=== PATIENT | male | born 1975 | race Caucasian/White ===

== ENCOUNTER 2017-02-14 03:16 | Emergency (ER) | payer OTHER ==
[2017-02-14 03:21] VITALS: BP 160/115
[2017-02-14] MEDS ORDERED: oxyCODONE/Acetamin 5/325 MG* TAB PO ONE (03:38)
[2017-02-14] MEDS ORDERED: Ketorolac INJ* 60 MG/2 ML VIAL IM ONE (03:38)
--- NOTE | 2017-02-14 03:43 | ED ---
Katiana Wagner Michael, scribed for Jose Luis Kellogg MD on 02/14/17 at 0343 . Complex/Multi-Sys Presentation - HPI Summary HPI Summary: 42 y/o male comes to the ED presenting with upper right dental pain for the last week. The pt reports that he has 2 fx teeth, and he saw a dentist who referred him to an oral surgeon. This appointment is next week. The pain is not alleviated with 800mg Ibuprofen. The pt denies all other symptoms. - History Of Current Complaint Chief Complaint: EDDentalPain Time Seen by Provider: 02/14/17 03:35 Hx Obtained From: Patient, Medical Records Onset/Duration: Sudden Onset, Lasting Weeks, Still Present Timing: Constant Severity Currently: Moderate Severity Initially: Moderate Alleviating Factor(s): nothing Associated Signs And Symptoms: Positive: Other - dental pain - Allergies/Home Medications Allergies/Adverse Reactions: Allergies Allergy/AdvReac Type Severity Reaction Status Date / Time Codeine Allergy Rash Verified 07/30/15 12:46 Penicillins Allergy Rash Verified 07/30/15 12:46 Albuterol AdvReac Unknown Verified 07/30/15 12:46 Reaction Details PMH/Surg Hx/FS Hx/Imm Hx Endocrine/Hematology History: Denies: Hx Diabetes, Hx Thyroid Disease Cardiovascular History: Denies: Hx Hypertension Respiratory History: Denies: Hx Asthma, Hx Chronic Obstructive Pulmonary Disease (COPD) GI History: Denies: Hx Ulcer - Surgical History Surgery Procedure, Year, and Place: FUSION 2001 L-3 TRAUMA Infectious Disease History: No Infectious Disease History: Reports: Hx Hepatitis - C Denies: Hx Clostridium Difficile, Hx Human Immunodeficiency Virus (HIV), Hx of Known/Suspected MRSA, Hx Shingles, Hx Tuberculosis, Hx Known/Suspected VRE, Hx Known/Suspected VRSA, History Other Infectious Disease, Traveled Outside the [place] in Last 30 Days - Family History Known Family History: Negative: Blood Disorder - Social History Occupation: Employed Full-time Lives: Alone Alcohol Use: Occasionally Substance Use Type: Reports: None Smoking Status (MU): Former Smoker Type: Cigars Amount Used/How Often: once a week Have You Smoked in the Last Year: Yes Review of Systems Negative: Fever Positive: Dental Pain All Other Systems Reviewed And Are Negative: Yes Physical Exam Triage Information Reviewed: Yes Vital Signs On Initial Exam: Initial Vitals Temp Pulse Resp BP Pulse Ox 96.1 F 75 19 160/115 99 02/14/17 03:19 02/14/17 03:19 02/14/17 03:19 02/14/17 03:19 02/14/17 03:19 Vital Signs Reviewed: Yes Appearance: Positive: Well-Appearing, No Pain Distress Skin: Positive: Warm Head/Face: Positive: Normal Head/Face Inspection ENT: Positive: Hearing grossly normal Dental: Positive: Gross Decay/Caries @ Respiratory/Lung Sounds: Positive: Breath Sounds Present Neurological: Positive: Alert, Oriented to Person Place, Time Psychiatric: Positive: Affect/Mood Appropriate Diagnostics - Vital Signs Vital Signs Temp Pulse Resp BP Pulse Ox 02/14/17 03:22 96.1 F 77 16 160/115 98 02/14/17 03:19 96.1 F 75 19 160/115 99 - Laboratory Lab Statement: Any lab studies that have been ordered have been reviewed, and results considered in the medical decision making process. Complex Multi-Symp Course/Dx - Diagnoses Provider Diagnoses: Dentalgia Discharge - Discharge Plan Condition: Stable Disposition: HOME Prescriptions: Ibuprofen TAB* [Motrin TAB* 800 MG] 800 mg PO Q8H #30 tab Patient Education Materials: Toothache (ED) Referrals: Reese Oliver MD [Primary Care Provider] - Additional Instructions: Please go to your scheduled appointment with the oral surgeon. If needed follow up with Dr. Oliver when needed. The documentation as recorded by the Katiana baker Michael accurately reflects the service I personally performed and the decisions made by , Jose Luis Kellogg MD.
== END 2017-02-14 04:30 | disposition home or self-care (01) ==
LOC: ED 03:16
DX: K08.89 Other specified disorders of teeth and supporting structures (principal); Z87.891 Personal history of nicotine dependence; Z88.5 Allergy status to narcotic agent; Z88.0 Allergy status to penicillin
CPT/HCPCS: 99281; A9270-GY; J1885

== ENCOUNTER 2017-07-06 18:35 | Emergency (ER) | payer OTHER ==
[2017-07-06] MEDS ORDERED: Ketorolac INJ* 30 MG/ML 1 ML VIAL IV PUSH ONE (19:19)
[2017-07-06 19:28] LABS: Hematocrit 42 % (42-52); Hemoglobin 14.6 g/dl (14.0-18.0); Mean Corpuscular HGB Conc 35 g/dl (31-36); Mean Corpuscular Hemoglobin 30 pg (27-31); Mean Corpuscular Volume 85 fL (80-94); Mean Platelet Volume 8 um3 (7.4-10.4); Red Cell Distribution Width 14 % (10.5-15); White Blood Count 9.1 10^3/ul (3.5-10.8)
[2017-07-06 19:41] LABS: Albumin 4.3 g/dL (3.2-5.2); BUN/Creatinine Ratio 19.8 (8-20); Calcium 9.4 mg/dL (8.6-10.3); EGFR African American 135.1 (>60); Globulin 2.7 g/dL (2-4); Magnesium 1.8 mg/dL (1.9-2.7); Potassium 3.5 mmol/L (3.5-5.0); Total Bilirubin 0.8 mg/dL (0.2-1.0)
[2017-07-06 20:04] LABS: TSH (Thyroid Stimulating Horm) 0.52 mcIU/mL (0.34-5.60)
--- NOTE | 2017-07-06 20:28 | RAD ---
HISTORY: Chest pain COMPARISONS: August 20, 2007 VIEWS: 4: Frontal dual-energy and lateral views of the chest. FINDINGS: CARDIOMEDIASTINAL SILHOUETTE: The cardiomediastinal silhouette is normal. ALISA: The alisa are normal. PLEURA: The costophrenic angles are sharp. No pleural abnormalities are noted. LUNG PARENCHYMA: The lungs are clear. ABDOMEN: The upper abdomen is clear. There is no subphrenic gas. BONES AND SOFT TISSUES: No bone or soft tissue abnormalities are noted. OTHER: None. IMPRESSION: NO ACTIVE CARDIOPULMONARY DISEASE.
[2017-07-06] MEDS ORDERED: Morphine INJ* 4 MG/ML 1 ML CARPUJECT IV ONE (20:41)
[2017-07-06] MEDS ORDERED: Ondansetron INJ* 2 MG/ML VIAL IV ONE (20:42)
[2017-07-06] MEDS ORDERED: Magnesium Oxide TAB* 400 MG PO ONE (21:56)
[2017-07-06 22:52] LABS: Urine Bilirubin Negative (Negative); Urine Glucose Negative (Negative); Urine Nitrite Negative (Negative)
[2017-07-06] MEDS ORDERED: Orphenadrine Citrate IV* 30 MG/ML 2 ML VIAL IV ONE (23:21)
[2017-07-06 23:31] VITALS: BP 129/78
--- NOTE | 2017-07-07 06:14 | ED ---
Criselda Wagner Alfonso, scribed for Ricky Solis MD on 07/06/17 at 1917 . HPI Chest Pain - HPI Summary HPI Summary: This patient is a 42 year old M presenting to [facility] with a chief complaint of constant CP gradually worsening over the past 3 days ago. The CP radiates to his RUE. The patient rates the pain 7/10 in severity. Symptoms aggravated by deep breaths. Symptoms alleviated by nothing. 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 Patient reports right hand tingling (pins and needles). Patient denies neck pain. 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 - History of Current Complaint Chief Complaint: EDChestPainROMI Time Seen by Provider: 07/06/17 19:12 Hx Obtained From: Patient Onset/Duration: Started Days Ago - 3, Worse Since - over the past 3 days Timing: Constant Current Severity: Moderate Pain Intensity: 7 Pain Scale Used: 0-10 Numeric Chest Pain Radiates: Yes Chest Pain Radiates To:: Arm - RUE Aggravating Factor(s): Deep Breaths Alleviating Factor(s): Nothing Associated Signs and Symptoms: Positive: Other: - right hand tingling (pins and needles). Patient denies neck pain. - Allergy/Home Medications Allergies/Adverse Reactions: Allergies Allergy/AdvReac Type Severity Reaction Status Date / Time Codeine Allergy Rash Verified 07/30/15 12:46 Penicillins Allergy Rash Verified 07/30/15 12:46 Albuterol AdvReac Unknown Verified 07/30/15 12:46 Reaction Details PMH/Surg Hx/FS Hx/Imm Hx Endocrine/Hematology History: Denies: Hx Diabetes, Hx Thyroid Disease Cardiovascular History: Denies: Hx Hypertension Respiratory History: Denies: Hx Asthma, Hx Chronic Obstructive Pulmonary Disease (COPD) GI History: Denies: Hx Ulcer - Surgical History Surgery Procedure, Year, and Place: FUSION 2001 L-3 TRAUMA Infectious Disease History: No Infectious Disease History: Reports: Hx Hepatitis - C Denies: Hx Clostridium Difficile, Hx Human Immunodeficiency Virus (HIV), Hx of Known/Suspected MRSA, Hx Shingles, Hx Tuberculosis, Hx Known/Suspected VRE, Hx Known/Suspected VRSA, History Other Infectious Disease, Traveled Outside the [place] in Last 30 Days - Family History Known Family History: Positive: Cardiac Disease Negative: Blood Disorder - Social History Lives: With Family Alcohol Use: Occasionally Substance Use Type: Reports: None Smoking Status (MU): Former Smoker Type: Cigars Amount Used/How Often: once a week Have You Smoked in the Last Year: Yes Review of Systems Positive: Chest Pain Positive: Other - right hand tingling (pins and needles); negative neck pain All Other Systems Reviewed And Are Negative: Yes Physical Exam - Summary Physical Exam Summary: VITAL SIGNS: Reviewed. GENERAL: Patient is a well-developed and nourished male who is lying comfortable in the stretcher. Patient is not in any acute respiratory distress. HEAD AND FACE: No signs of trauma. No ecchymosis, hematomas or skull depressions. No sinus tenderness. EYES: PERRLA, EOMI x 2, No injected conjunctiva, no nystagmus. EARS: Hearing grossly intact. Ear canals and tympanic membranes are within normal limits. MOUTH: Oropharynx within normal limits. NECK: Supple, trachea is midline, no adenopathy, no JVD, no carotid bruit, no c- spine tenderness, neck with full ROM. CHEST: Symmetric, tenderness at palpation at the left chest. LUNGS: Clear to auscultation bilaterally. No wheezing or crackles. CVS: Regular rate and rhythm, S1 and S2 present, no murmurs or gallops appreciated. ABDOMEN: Soft, non-tender. No signs of distention. No rebound no guarding, and no masses palpated. Bowel sounds are normal. EXTREMITIES: FROM in all major joints, no edema, no cyanosis or clubbing. NEURO: Alert and oriented x 3. No acute neurological deficits. Speech is normal and follows commands. SKIN: Dry and warm Triage Information Reviewed: Yes Vital Signs On Initial Exam: Initial Vitals Temp Pulse Resp BP Pulse Ox 96.9 F 109 16 156/98 95 07/06/17 18:36 07/06/17 18:36 07/06/17 18:36 07/06/17 18:36 07/06/17 18:36 Vital Signs Reviewed: Yes Diagnostics - Vital Signs Vital Signs Temp Pulse Resp BP Pulse Ox 07/06/17 18:36 96.9 F 109 16 156/98 95 - Laboratory Lab Results: Lab Results 07/06/17 07/06/17 07/06/17 Range/Units 19:00 19:00 19:00 WBC (3.5-10.8) 10^3/ul RBC (4.0-5.4) 10^6/ul Hgb (14.0-18.0) g/dl Hct (42-52) % MCV (80-94) fL MCH (27-31) pg MCHC (31-36) g/dl RDW (10.5-15) % Plt Count (150-450) 10^3/ul MPV (7.4-10.4) um3 Neut % (Auto) (38-83) % Lymph % (Auto) (25-47) % Rains % (Auto) (1-9) % Eos % (Auto) (0-6) % Baso % (Auto) (0-2) % Absolute Neuts (auto) (1.5-7.7) 10^3/ul Absolute Lymphs (auto) (1.0-4.8) 10^3/ul Absolute Monos (auto) (0-0.8) 10^3/ul Absolute Eos (auto) (0-0.6) 10^3/ul Absolute Basos (auto) (0-0.2) 10^3/ul Absolute Nucleated RBC 10^3/ul Nucleated RBC % APTT 32.6 (26.0-36.3) seconds Sodium 138 (133-145) mmol/L Potassium 3.5 (3.5-5.0) mmol/L Chloride 104 (101-111) mmol/L Carbon Dioxide 26 (22-32) mmol/L Anion Gap 8 (2-11) mmol/L BUN 16 (6-24) mg/dL Creatinine 0.81 (0.67-1.17) mg/dL Est GFR ( Amer) 135.1 (>60) Est GFR (Non-Af Amer) 105.0 (>60) BUN/Creatinine Ratio 19.8 (8-20) Glucose 112 H (70-100) mg/dL Lactic Acid (0.5-2.0) mmol/L Calcium 9.4 (8.6-10.3) mg/dL Magnesium 1.8 L (1.9-2.7) mg/dL Total Bilirubin 0.80 (0.2-1.0) mg/dL AST 25 (13-39) U/L ALT 25 (7-52) U/L Alkaline Phosphatase 68 (34-104) U/L Total Creatine Kinase 127 (10-223) U/L CK-MB (CK-2) 4.3 (0.6-6.3) ng/mL Troponin I 0.00 (<0.04) ng/mL B-Natriuretic Peptide 21 ( - 100) pg/mL Total Protein 7.0 (6.4-8.9) g/dL Albumin 4.3 (3.2-5.2) g/dL Globulin 2.7 (2-4) g/dL Albumin/Globulin Ratio 1.6 (1-3) TSH 0.52 (0.34-5.60) mcIU/mL Urine Color Urine Appearance Urine pH (5-9) Ur Specific [place] (1.010-1.030) Urine Protein (Negative) Urine Ketones (Negative) Urine Blood (Negative) Urine Nitrate (Negative) Urine Bilirubin (Negative) Urine Urobilinogen (Negative) Ur Leukocyte Esterase (Negative) Urine Glucose (Negative) 07/06/17 07/06/17 07/06/17 Range/Units 19:00 19:00 22:10 WBC 9.1 (3.5-10.8) 10^3/ul RBC 4.90 (4.0-5.4) 10^6/ul Hgb 14.6 (14.0-18.0) g/dl Hct 42 (42-52) % MCV 85 (80-94) fL MCH 30 (27-31) pg MCHC 35 (31-36) g/dl RDW 14 (10.5-15) % Plt Count 334 (150-450) 10^3/ul MPV 8 (7.4-10.4) um3 Neut % (Auto) 59.3 (38-83) % Lymph % (Auto) 33.8 (25-47) % Rains % (Auto) 5.1 (1-9) % Eos % (Auto) 1.2 (0-6) % Baso % (Auto) 0.6 (0-2) % Absolute Neuts (auto) 5.4 (1.5-7.7) 10^3/ul Absolute Lymphs (auto) 3.1 (1.0-4.8) 10^3/ul Absolute Monos (auto) 0.5 (0-0.8) 10^3/ul Absolute Eos (auto) 0.1 (0-0.6) 10^3/ul Absolute Basos (auto) 0.1 (0-0.2) 10^3/ul Absolute Nucleated RBC 0 10^3/ul Nucleated RBC % 0 APTT (26.0-36.3) seconds Sodium (133-145) mmol/L Potassium (3.5-5.0) mmol/L Chloride (101-111) mmol/L Carbon Dioxide (22-32) mmol/L Anion Gap (2-11) mmol/L BUN (6-24) mg/dL Creatinine (0.67-1.17) mg/dL Est GFR ( Amer) (>60) Est GFR (Non-Af Amer) (>60) BUN/Creatinine Ratio (8-20) Glucose (70-100) mg/dL Lactic Acid 1.0 (0.5-2.0) mmol/L Calcium (8.6-10.3) mg/dL Magnesium (1.9-2.7) mg/dL Total Bilirubin (0.2-1.0) mg/dL AST (13-39) U/L ALT (7-52) U/L Alkaline Phosphatase (34-104) U/L Total Creatine Kinase (10-223) U/L CK-MB (CK-2) (0.6-6.3) ng/mL Troponin I (<0.04) ng/mL B-Natriuretic Peptide ( - 100) pg/mL Total Protein (6.4-8.9) g/dL Albumin (3.2-5.2) g/dL Globulin (2-4) g/dL Albumin/Globulin Ratio (1-3) TSH (0.34-5.60) mcIU/mL Urine Color Yellow Urine Appearance Clear Urine pH 6.0 (5-9) Ur Specific [place] 1.031 H (1.010-1.030) Urine Protein Negative (Negative) Urine Ketones Negative (Negative) Urine Blood Negative (Negative) Urine Nitrate Negative (Negative) Urine Bilirubin Negative (Negative) Urine Urobilinogen Negative (Negative) Ur Leukocyte Esterase Negative (Negative) Urine Glucose Negative (Negative) 07/06/17 Range/Units 22:10 WBC (3.5-10.8) 10^3/ul RBC (4.0-5.4) 10^6/ul Hgb (14.0-18.0) g/dl Hct (42-52) % MCV (80-94) fL MCH (27-31) pg MCHC (31-36) g/dl RDW (10.5-15) % Plt Count (150-450) 10^3/ul MPV (7.4-10.4) um3 Neut % (Auto) (38-83) % Lymph % (Auto) (25-47) % Rains % (Auto) (1-9) % Eos % (Auto) (0-6) % Baso % (Auto) (0-2) % Absolute Neuts (auto) (1.5-7.7) 10^3/ul Absolute Lymphs (auto) (1.0-4.8) 10^3/ul Absolute Monos (auto) (0-0.8) 10^3/ul Absolute Eos (auto) (0-0.6) 10^3/ul Absolute Basos (auto) (0-0.2) 10^3/ul Absolute Nucleated RBC 10^3/ul Nucleated RBC % APTT (26.0-36.3) seconds Sodium (133-145) mmol/L Potassium (3.5-5.0) mmol/L Chloride (101-111) mmol/L Carbon Dioxide (22-32) mmol/L Anion Gap (2-11) mmol/L BUN (6-24) mg/dL Creatinine (0.67-1.17) mg/dL Est GFR ( Amer) (>60) Est GFR (Non-Af Amer) (>60) BUN/Creatinine Ratio (8-20) Glucose (70-100) mg/dL Lactic Acid (0.5-2.0) mmol/L Calcium (8.6-10.3) mg/dL Magnesium (1.9-2.7) mg/dL Total Bilirubin (0.2-1.0) mg/dL AST (13-39) U/L ALT (7-52) U/L Alkaline Phosphatase (34-104) U/L Total Creatine Kinase (10-223) U/L CK-MB (CK-2) (0.6-6.3) ng/mL Troponin I 0.00 (<0.04) ng/mL B-Natriuretic Peptide ( - 100) pg/mL Total Protein (6.4-8.9) g/dL Albumin (3.2-5.2) g/dL Globulin (2-4) g/dL Albumin/Globulin Ratio (1-3) TSH (0.34-5.60) mcIU/mL Urine Color Urine Appearance Urine pH (5-9) Ur Specific [place] (1.010-1.030) Urine Protein (Negative) Urine Ketones (Negative) Urine Blood (Negative) Urine Nitrate (Negative) Urine Bilirubin (Negative) Urine Urobilinogen (Negative) Ur Leukocyte Esterase (Negative) Urine Glucose (Negative) Result Diagrams: 07/06/17 19:00 07/06/17 19:00 Lab Statement: Any lab studies that have been ordered have been reviewed, and results considered in the medical decision making process. - Radiology CXR Radiology Interpretation Completed By: Radiologist - NO ACTIVE CARDIOPULMONARY DISEASE. ED physician has reviewed this radiology report and agrees. - EKG 1840 Cardiac Rate: Tachycardia - 106 BPM EKG Rhythm: Sinus Tachycardia EKG Interpretation: No ST elevation. Q wave in III. Re-Evaluation - Re-Evaluation First Eval Re-Evaluation Time: 21:00 Change: Improved Comment: He rates the pain now decreased to a 4/10. He states he is feeling better. Chest Pain Course/Dx - Course Assessment/Plan: This patient is a 42 year old M presenting to [facility] with a chief complaint of constant CP gradually worsening over the past 3 days ago. The CP radiates to his RUE. The patient rates the pain 7/10 in severity. Symptoms aggravated by deep breaths. Symptoms alleviated by nothing. 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 Patient reports right hand tingling (pins and needles). Patient denies neck pain. 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 Test results with no significant abnormalities except for glucose of 112. Troponin #1 is 0.00. Troponin #2 four hours later is also 0.00. An EKG reveals Sinus Tachycardia. CXR reveals NO ACTIVE CARDIOPULMONARY DISEASE. ED physician has reviewed this radiology report and agrees. In the ED course the patient was given Toradol which decreased the pain form 07/10 to 4/ 10. He was given morphine which fully decreased the pain and he is now asymptomatic. Since the patient has no comorbidities and negative troponins he can be safely discharged home with PCP follow up. I have a very low suspicion of acute coronary syndrome. The patient is hemodynamically stable and alert and oriented x3. - Chest Pain Differential Diagnosis/HQI/PQRI: ACS, Angina, CHF, Chest Wall, GI Disease, Lower Respiratory Infection - Diagnoses Provider Diagnoses: Chest pain Discharge - Discharge Plan Condition: Stable Disposition: HOME Prescriptions: Methocarbamol [Robaxin-750 MG TAB] 750 mg PO TID #9 tab Naproxen TAB* [Naprosyn 250 mg TAB*] 500 mg PO Q8H PRN #30 tab PRN Reason: Pain Patient Education Materials: Chest Pain (ED) Referrals: Reese Oliver MD [Primary Care Provider] - 3 Days Additional Instructions: RETURN TO THE EMERGENCY DEPARTMENT FOR CHANGING OR WORSENING SYMPTOMS. The documentation as recorded by the Criselda baker Alfonso accurately reflects the service I personally performed and the decisions made by Will coon Walter, MD.
== END 2017-07-06 23:49 | disposition home or self-care (01) ==
LOC: ED 18:35
DX: R07.9 Chest pain, unspecified (principal); Z82.49 Family history of ischemic heart disease and other diseases of the circulatory system; Z87.891 Personal history of nicotine dependence
CPT/HCPCS: 36415; 71020; 80053; 81003; 82550; 82553; 83605; 83735; 83880; 84443; 84484; 85025; 85730; 93005; 96374; 96375; 99284; J1885; J2270; J2360; J2405

== ENCOUNTER 2017-08-19 09:10 | Emergency (ER) | payer OTHER ==
[2017-08-19] MEDS ORDERED: Promethazine INJ(RESTRICTED)* 25 MG/ML 1 ML VIAL IM ONE (09:45)
[2017-08-19] MEDS ORDERED: Ketorolac INJ* 60 MG/2 ML VIAL IM ONE (09:46)
--- NOTE | 2017-08-19 09:46 | ED ---
Throat Pain/Nasal Congestion - HPI Summary HPI Summary: 42 male presents to ED with complaints of dental pain that began 1 week ago after shattering his tooth. States it is the upper right side. Has been applying clove oil and orajel without relief. Has been taking ibuprofen 800mg every 6 hours, also experiencing nausea and vomiting. Takes zofran without relief. Thinks it is from the abscess or from taking too much ibuprofen. Also taking prescribed percocet 7.5mg/325 without relief. Denies known fever, admits to subjective chills. Carey a "bump" in right cheek, that he believes "popped" yesterday. No obvious swelling or drainage. Denies any other complaints. No difficulty swallowing or breathing. No PMHx other than previous back injury/ surgery. Has appointment with oral surgeon on Sep 07. - History of Current Complaint Chief Complaint: EDDentalPain Time Seen by Provider: 08/19/17 09:17 Hx Obtained From: Patient Onset/Duration: Sudden Onset, Lasting Weeks - 1, Still Present, Worse Since Severity: Severe Cough: None - Allergies/Home Medications Allergies/Adverse Reactions: Allergies Allergy/AdvReac Type Severity Reaction Status Date / Time Codeine Allergy Rash Verified 07/30/15 12:46 Penicillins Allergy Rash Verified 07/30/15 12:46 Albuterol AdvReac Unknown Verified 07/30/15 12:46 Reaction Details PMH/Surg Hx/FS Hx/Imm Hx Endocrine/Hematology History: Denies: Hx Diabetes, Hx Thyroid Disease Cardiovascular History: Denies: Hx Hypertension Respiratory History: Denies: Hx Asthma, Hx Chronic Obstructive Pulmonary Disease (COPD) GI History: Denies: Hx Ulcer - Surgical History Surgery Procedure, Year, and Place: FUSION 2001 L-3 TRAUMA - Immunization History Immunizations Up to Date: Yes Infectious Disease History: No Infectious Disease History: Reports: Hx Hepatitis - C Denies: Hx Clostridium Difficile, Hx Human Immunodeficiency Virus (HIV), Hx of Known/Suspected MRSA, Hx Shingles, Hx Tuberculosis, Hx Known/Suspected VRE, Hx Known/Suspected VRSA, History Other Infectious Disease, Traveled Outside the [place] in Last 30 Days - Family History Known Family History: Positive: Cardiac Disease Negative: Blood Disorder - Social History Alcohol Use: Occasionally Substance Use Type: Reports: None Smoking Status (MU): Former Smoker Type: Cigars Amount Used/How Often: once a week Have You Smoked in the Last Year: Yes Review of Systems Positive: Chills Positive: Dental Pain Cardiovascular: Negative Respiratory: Negative Positive: Vomiting, Diarrhea Skin: Negative Neurological: Negative All Other Systems Reviewed And Are Negative: Yes Physical Exam Triage Information Reviewed: Yes Vital Signs On Initial Exam: Initial Vitals Temp Pulse Resp BP Pulse Ox 97.7 F 90 20 137/98 98 08/19/17 09:11 08/19/17 09:11 08/19/17 09:11 08/19/17 09:11 08/19/17 09:11 Vital Signs Reviewed: Yes Appearance: Positive: Well-Appearing, Well-Nourished, Pain Distress - moderate Skin: Positive: Warm, Skin Color Reflects Adequate Perfusion, Dry. Negative: Cold, Cyanosis @, Pale, Erythema @ Head/Face: Positive: Normal Head/Face Inspection Eyes: Positive: Conjunctiva Clear ENT: Positive: Normal ENT inspection, Hearing grossly normal, Pharynx normal, TMs normal. Negative: Nasal congestion, Nasal drainage, Tonsillar swelling, Tonsillar exudate, Sinus tenderness Dental: Positive: Gross Decay/Caries @, Dental Fracture @ - right upper tooth #2 , with erythema of gums above. tender to touch. Negative: Percussion Tenderness @, Abscess @ - no palpable abscess appreciated, no obvious edema or erythema externally, Cervical Lymphadenopathy, Bleeding, Oropharynx Neck: Positive: Supple, Nontender, No Lymphadenopathy Respiratory/Lung Sounds: Positive: Clear to Auscultation, Breath Sounds Present. Negative: Rales, Rhonchi, Wheezes Cardiovascular: Positive: Normal, RRR, Pulses are Symmetrical in both Upper and Lower Extremities. Negative: Murmur, Rub Bowel Sounds: Positive: Present Musculoskeletal: Positive: Normal, Strength/ROM Intact Neurological: Positive: Normal, Sensory/Motor Intact, Alert, Oriented to Person Place, Time Diagnostics - Vital Signs Vital Signs Temp Pulse Resp BP Pulse Ox 08/19/17 09:11 97.7 F 90 20 137/98 98 - Laboratory Lab Statement: Any lab studies that have been ordered have been reviewed, and results considered in the medical decision making process. Re-Evaluation - Re-Evaluation First Eval Re-Evaluation Time: 10:44 Change: Improved - had relief after medication, ready to be d/c EENT Course/Dx - Course Course Of Treatment: given toradol and phenergan to help with pain and nausea. had relief. patient already taking percocet at home and zofran. will give phenergan to take at home, as zofran is not working. start on clindamycin x 10 days. aware of symptoms of c diff. encourage to eat BRAT diet and take OTC immodium as needed for current diarrhea. aware of worsening signs and symptoms, patient already taking probiotics daily, encouraged improtance while taking antibiotic. aware of worsening signs ands ymptoms. has appointment with oral surgeon on sep 08. encourage to call and see if there is anything sooner. return if worsening symptoms. no concern for sepsis or other emergent etiology at this time requiring further work up/evaluation at this time. follow up with dentist as well. - Differential Diagnoses Differential Diagnoses: Dental Abscess, Dental Caries, Fractured Tooth - Diagnoses Provider Diagnoses: Fractured tooth, Dental abscess Discharge - Discharge Plan Condition: Stable Disposition: HOME Prescriptions: Clindamycin Cap(NF) [Clindamycin Cap 300 mg Cap(NF)] 300 mg PO TID #30 cap Promethazine TAB* [Phenergan TAB*] 25 mg PO Q8H PRN #8 tab PRN Reason: Nausea Patient Education Materials: Dental Abscess (ED), Acute Nausea and Vomiting (ED ) Referrals: Reese Oliver MD [Primary Care Provider] - Additional Instructions: Take prescribed antibiotic as directed, do not miss a dose. Continue taking probiotics as it is very important. Phenergan as needed for nausea. OTC Immodium for diarrhea and BRAT diet (bananas , rice, applesauce, toast and high fiber). Increase fluid intake. Take aleve as needed with food daily to help with pain and inflammation. Already prescribed medication for pain. Cool compresses and continue orajel. Any new or worsening symptoms please seek medical attention immediately, as discussed. Follow up with oral surgeon at your scheduled appointment.
[2017-08-19] MEDS ORDERED: Clindamycin CAP* 150 MG PO ONE (10:37)
[2017-08-19] MEDS ORDERED: HYDROcodone/ACETAMIN 5-325 MG* 1 TAB PO ONE (10:49)
[2017-08-19 11:07] VITALS: BP 143/91
== END 2017-08-19 11:06 | disposition home or self-care (01) ==
LOC: ED 09:10
DX: K04.7 Periapical abscess without sinus (principal); K03.81 Cracked tooth; Z87.891 Personal history of nicotine dependence; K08.89 Other specified disorders of teeth and supporting structures; R11.10 Vomiting, unspecified; R19.7 Diarrhea, unspecified
CPT/HCPCS: 96372; 99282; A9270-GY; J1885; J2550

== ENCOUNTER 2017-08-26 16:21 | Emergency (ER) | payer OTHER ==
[2017-08-26] MEDS ORDERED: Metoclopramide IV* 5 MG/ML 2 ML VIAL IV SLOW PU ONE (18:12)
[2017-08-26] MEDS ORDERED: NS 0.9% 1000 ML* 1,000 ML IV ONE (18:12)
[2017-08-26] MEDS ORDERED: Ketorolac INJ* 30 MG/ML 1 ML VIAL IV PUSH ONE (18:13)
[2017-08-26] MEDS ORDERED: Clindamycin 600 MG IVPREMIX(* 600 MG/50 ML SDV IV ONE (18:13)
--- NOTE | 2017-08-26 18:49 | ED ---
Throat Pain/Nasal Congestion - HPI Summary HPI Summary: 43M presents with dental pain for 2 weeks. He has an abscess above tooth 6. He has been taking clindamycin for past week. He states that it started overtwo weeks ago when he shattered his tooth. Has been taking ibuprofen and normal pain medication with some relief when can keep medication down. He has been having nausea and vomiting. Takes zofran without relief. states phenergen prescribed helped but ran out. States has vomited up clindamycin. admits to generalized body aches. Denies known fever, admits to subjective chills. no chest pain or SOB. no pain with EOM. no swelling around eyes. Has appointment with oral surgeon on Sep 07. states yesterday the abscess popped and has been draining. has gotten some pain relief which such but is makes stomach feel worst. has history of GERD and IBS which ibuprofen has been aggravating. states stomach feels like spasms. - History of Current Complaint Chief Complaint: EDDentalPain Time Seen by Provider: 08/26/17 17:56 - Allergies/Home Medications Allergies/Adverse Reactions: Allergies Allergy/AdvReac Type Severity Reaction Status Date / Time Codeine Allergy Rash Verified 07/30/15 12:46 Penicillins Allergy Rash Verified 07/30/15 12:46 Albuterol AdvReac Unknown Verified 07/30/15 12:46 Reaction Details PMH/Surg Hx/FS Hx/Imm Hx Endocrine/Hematology History: Denies: Hx Diabetes, Hx Thyroid Disease Cardiovascular History: Denies: Hx Hypertension Respiratory History: Denies: Hx Asthma, Hx Chronic Obstructive Pulmonary Disease (COPD) GI History: Denies: Hx Ulcer - Surgical History Surgery Procedure, Year, and Place: FUSION 2001 L-3 TRAUMA Infectious Disease History: No Infectious Disease History: Reports: Hx Hepatitis - C Denies: Hx Clostridium Difficile, Hx Human Immunodeficiency Virus (HIV), Hx of Known/Suspected MRSA, Hx Shingles, Hx Tuberculosis, Hx Known/Suspected VRE, Hx Known/Suspected VRSA, History Other Infectious Disease, Traveled Outside the [place] in Last 30 Days - Family History Known Family History: Positive: Cardiac Disease Negative: Blood Disorder - Social History Alcohol Use: Occasionally Substance Use Type: Reports: None Smoking Status (MU): Former Smoker Type: Cigars Amount Used/How Often: once a week Have You Smoked in the Last Year: Yes Review of Systems Negative: Fever Positive: Dental Pain Negative: Chest Pain Negative: Shortness Of Breath All Other Systems Reviewed And Are Negative: Yes Physical Exam Triage Information Reviewed: Yes Vital Signs On Initial Exam: Initial Vitals Temp Pulse Resp BP Pulse Ox 97.5 F 98 18 138/94 97 08/26/17 16:47 08/26/17 16:47 08/26/17 16:47 08/26/17 16:47 08/26/17 16:47 Vital Signs Reviewed: Yes Appearance: Positive: Well-Appearing Skin: Positive: Warm, Dry Head/Face: Positive: Normal Head/Face Inspection Eyes: Positive: Normal, EOMI, CURT, Conjunctiva Clear, Other: - no swelling around eyes ENT: Positive: Normal ENT inspection, Pharynx normal, TMs normal Dental: Positive: Percussion Tenderness @ - 6, Abscess @ - 6 Neck: Positive: Supple, Nontender, No Lymphadenopathy Respiratory/Lung Sounds: Positive: Clear to Auscultation, Breath Sounds Present Cardiovascular: Positive: Normal, RRR Abdomen Description: Positive: Nontender, Soft Bowel Sounds: Positive: Present Musculoskeletal: Positive: Normal Neurological: Positive: Normal Psychiatric: Positive: Normal Diagnostics - Vital Signs Vital Signs Temp Pulse Resp BP Pulse Ox 08/26/17 16:47 97.5 F 98 18 138/94 97 - Laboratory Result Diagrams: 08/26/17 18:40 08/26/17 18:40 Lab Statement: Any lab studies that have been ordered have been reviewed, and results considered in the medical decision making process. EENT Course/Dx - Course Course Of Treatment: 43M presents with dental pain for 2 weeks. He has an abscess above tooth 6. He has been taking clindamycin for past week. He states that it started overtwo weeks ago when he shattered his tooth. Has been taking ibuprofen and normal pain medication with some relief when can keep medication down. He has been having nausea and vomiting. Takes zofran without relief. states phenergen prescribed helped but ran out. States has vomited up clindamycin. admits to generalized body aches. Denies known fever, admits to subjective chills. no chest pain or SOB. no pain with EOM. no swelling around eyes. Has appointment with oral surgeon on Sep 07. states yesterday the abscess popped and has been draining. has gotten some pain relief which such but is makes stomach feel worst. has history of GERD and IBS which ibuprofen has been aggravating. states stomach feels like spasms. on exam has draining abscess at tooth 6. EOMI. labs normal. gave dose of clindamycin and fluids here and patient feeling better. will discharge with phenergen and to continue clindamycin. patient requesting flexeril for pain which explained does not normally work for this type of pain but patient insisted. patient understand and agrees with plan. - Differential Diagnoses Differential Diagnoses: Dental Abscess, Dental Caries, Fractured Tooth - Diagnoses Provider Diagnoses: Dental abscess Discharge - Discharge Plan Condition: Good Disposition: HOME Prescriptions: Clindamycin HCl [Clindamycin 150 MG CAP*] 450 mg PO TID #90 cap Cyclobenzaprine TAB* [Flexeril 10 MG TAB*] 10 mg PO TID PRN #15 tab PRN Reason: Pain Promethazine TAB* [Phenergan TAB*] 25 mg PO Q8H PRN #30 tab PRN Reason: Nausea Patient Education Materials: Dental Abscess (ED) Referrals: Reese Oliver MD [Primary Care Provider] - Additional Instructions: Take clindamycin three tablets three times a day for 10 days Take phenergan every [address] heat on area Follow up with oral surgeon as soon as possible Return to ED if develop any new or worsening symptoms Images - Images Dental: 1 - abscess
[2017-08-26 19:07] LABS: Hematocrit 41 % (42-52); Hemoglobin 14.2 g/dl (14.0-18.0); Mean Corpuscular HGB Conc 35 g/dl (31-36); Mean Corpuscular Hemoglobin 30 pg (27-31); Mean Corpuscular Volume 86 fL (80-94); Mean Platelet Volume 8 um3 (7.4-10.4); Red Blood Count 4.73 10^6/ul (4.0-5.4); Red Cell Distribution Width 14 % (10.5-15); White Blood Count 9.9 10^3/ul (3.5-10.8)
[2017-08-26 19:17] LABS: Albumin 4.3 g/dL (3.2-5.2); BUN/Creatinine Ratio 20.9 (8-20); Calcium 9.2 mg/dL (8.6-10.3); Total Bilirubin 0.4 mg/dL (0.2-1.0); Total Protein 7.3 g/dL (6.4-8.9)
[2017-08-26] MEDS ORDERED: Cyclobenzaprine TAB* 10 MG PO ONE (19:26)
[2017-08-26 19:54] LABS: Potassium 4.5 mmol/L (3.5-5.0)
[2017-08-26 20:12] VITALS: BP 129/66
== END 2017-08-26 20:12 | disposition home or self-care (01) ==
LOC: ED 16:21
DX: K04.7 Periapical abscess without sinus (principal); Z87.891 Personal history of nicotine dependence; K21.9 Gastro-esophageal reflux disease without esophagitis; K58.9 Irritable bowel syndrome, unspecified; Z88.5 Allergy status to narcotic agent; Z88.0 Allergy status to penicillin
CPT/HCPCS: 36415; 80053; 83605; 85025; 96360; 96374; 96375; 99282; A9270-GY; J1885; J2765

== ENCOUNTER 2017-09-16 16:33 | Emergency (ER) | payer OTHER ==
[2017-09-16] MEDS ORDERED: Clindamycin 600 MG IVPREMIX(* 600 MG/50 ML SDV IV ONE (17:57)
[2017-09-16] MEDS ORDERED: Ketorolac INJ* 30 MG/ML 1 ML VIAL IV PUSH ONE (17:59)
[2017-09-16] MEDS ORDERED: oxyCODONE/Acetamin 5/325 MG* TAB PO ONE (17:59)
[2017-09-16 18:14] LABS: Hematocrit 40 % (42-52); Mean Corpuscular HGB Conc 35 g/dl (31-36); Mean Corpuscular Hemoglobin 29 pg (27-31); Mean Corpuscular Volume 85 fL (80-94); Mean Platelet Volume 8 um3 (7.4-10.4); Red Blood Count 4.77 10^6/ul (4.0-5.4); Red Cell Distribution Width 14 % (10.5-15)
[2017-09-16 18:29] LABS: Albumin 4.2 g/dL (3.2-5.2); BUN/Creatinine Ratio 17.6 (8-20); Calcium 9.2 mg/dL (8.6-10.3); EGFR African American 165.3 (>60); EGFR Non-African American 128.5 (>60); Globulin 2.8 g/dL (2-4); Potassium 3.7 mmol/L (3.5-5.0); Total Bilirubin 0.5 mg/dL (0.2-1.0)
[2017-09-16] MEDS ORDERED: Iohexol 300* (CONTRAST) 10 ML SDV IV ONE (18:31)
--- NOTE | 2017-09-16 18:37 | ED ---
Throat Pain/Nasal Congestion - HPI Summary HPI Summary: 42M presents with dental abscess for a month. He was seen at the dentist this week and was told that can not have tooth removed to Nov. He has been on a month of clindamycin. He states the pain has increased for the past couple days and is radiating up to his sinus and behind his eyes. He states area around eyes feels swollen. He also has lymph nodes enlarged in neck. He denies any fever. He admits to nausea. He is not currently on any antibiotics. - History of Current Complaint Chief Complaint: EDDentalPain Time Seen by Provider: 09/16/17 17:37 - Allergies/Home Medications Allergies/Adverse Reactions: Allergies Allergy/AdvReac Type Severity Reaction Status Date / Time Codeine Allergy Rash Verified 09/16/17 16:41 Penicillins Allergy Rash Verified 09/16/17 16:41 Albuterol AdvReac Unknown Verified 09/16/17 16:41 Reaction Details PMH/Surg Hx/FS Hx/Imm Hx Endocrine/Hematology History: Denies: Hx Diabetes, Hx Thyroid Disease Cardiovascular History: Denies: Hx Hypertension Respiratory History: Denies: Hx Asthma, Hx Chronic Obstructive Pulmonary Disease (COPD) GI History: Denies: Hx Ulcer - Surgical History Surgery Procedure, Year, and Place: FUSION 2001 L-3 TRAUMA Infectious Disease History: No Infectious Disease History: Reports: Hx Hepatitis - C Denies: Hx Clostridium Difficile, Hx Human Immunodeficiency Virus (HIV), Hx of Known/Suspected MRSA, Hx Shingles, Hx Tuberculosis, Hx Known/Suspected VRE, Hx Known/Suspected VRSA, History Other Infectious Disease, Traveled Outside the [place] in Last 30 Days - Family History Known Family History: Positive: Cardiac Disease Negative: Blood Disorder - Social History Alcohol Use: Rare Substance Use Type: Reports: Prescribed Substance Use Comment - Amount & Last Used: Percocet 7.5 mg 4 times a day Smoking Status (MU): Former Smoker Type: Cigars Amount Used/How Often: once a week Have You Smoked in the Last Year: Yes Review of Systems Negative: Fever Positive: Dental Pain Negative: Chest Pain Negative: Shortness Of Breath All Other Systems Reviewed And Are Negative: Yes Physical Exam Triage Information Reviewed: Yes Vital Signs On Initial Exam: Initial Vitals Temp Pulse Resp BP Pulse Ox 97.7 F 85 16 167/117 96 09/16/17 16:41 09/16/17 16:41 09/16/17 16:41 09/16/17 16:41 09/16/17 16:41 Vital Signs Reviewed: Yes Appearance: Positive: Well-Appearing Skin: Positive: Warm, Dry Head/Face: Positive: Normal Head/Face Inspection Eyes: Positive: Normal, EOMI, CURT, Conjunctiva Clear Dental: Positive: Percussion Tenderness @ - 5, Gross Decay/Caries @ - 5 Neck: Positive: Supple, Tenderness @ - right submandibular lymph node Respiratory/Lung Sounds: Positive: Clear to Auscultation, Breath Sounds Present Cardiovascular: Positive: Normal, RRR Abdomen Description: Positive: Nontender, Soft Bowel Sounds: Positive: Present Musculoskeletal: Positive: Normal Neurological: Positive: Normal Psychiatric: Positive: Normal Diagnostics - Vital Signs Vital Signs Temp Pulse Resp BP Pulse Ox 09/16/17 17:40 83 96 09/16/17 17:38 151/92 09/16/17 16:41 97.7 F 85 16 167/117 96 - Laboratory Lab Results: Lab Results 09/16/17 09/16/17 Range/Units 18:07 18:07 WBC 11.0 H (3.5-10.8) 10^3/ul RBC 4.77 (4.0-5.4) 10^6/ul Hgb 14.0 (14.0-18.0) g/dl Hct 40 L (42-52) % MCV 85 (80-94) fL MCH 29 (27-31) pg MCHC 35 (31-36) g/dl RDW 14 (10.5-15) % Plt Count 286 (150-450) 10^3/ul MPV 8 (7.4-10.4) um3 Neut % (Auto) 68.9 (38-83) % Lymph % (Auto) 24.3 L (25-47) % [place] % (Auto) 5.6 (1-9) % Eos % (Auto) 0.5 (0-6) % Baso % (Auto) 0.7 (0-2) % Absolute Neuts (auto) 7.5 (1.5-7.7) 10^3/ul Absolute Lymphs (auto) 2.7 (1.0-4.8) 10^3/ul Absolute Monos (auto) 0.6 (0-0.8) 10^3/ul Absolute Eos (auto) 0.1 (0-0.6) 10^3/ul Absolute Basos (auto) 0.1 (0-0.2) 10^3/ul Absolute Nucleated RBC 0.01 10^3/ul Nucleated RBC % 0.1 Sodium 132 L (133-145) mmol/L Potassium 3.7 (3.5-5.0) mmol/L Chloride 99 L (101-111) mmol/L Carbon Dioxide 25 (22-32) mmol/L Anion Gap 8 (2-11) mmol/L BUN 12 (6-24) mg/dL Creatinine 0.68 (0.67-1.17) mg/dL Est GFR ( Amer) 165.3 (>60) Est GFR (Non-Af Amer) 128.5 (>60) BUN/Creatinine Ratio 17.6 (8-20) Glucose 91 (70-100) mg/dL Calcium 9.2 (8.6-10.3) mg/dL Total Bilirubin 0.50 (0.2-1.0) mg/dL AST 20 (13-39) U/L ALT 20 (7-52) U/L Alkaline Phosphatase 63 (34-104) U/L Total Protein 7.0 (6.4-8.9) g/dL Albumin 4.2 (3.2-5.2) g/dL Globulin 2.8 (2-4) g/dL Albumin/Globulin Ratio 1.5 (1-3) Result Diagrams: 09/16/17 18:07 09/16/17 18:07 Lab Statement: Any lab studies that have been ordered have been reviewed, and results considered in the medical decision making process. - CT maxillary CT Interpretation: Positive (See Comments) - IMPRESSION: DENTAL DISEASE DESCRIBED, NO SOFT TISSUE ABSCESS IS SEEN. CT Interpretation Completed By: Radiologist EENT Course/Dx - Course Course Of Treatment: 42M presents with dental abscess for a month. He was seen at the dentist this week and was told that can not have tooth removed to Nov. He has been on a month of clindamycin. He states the pain has increased for the past couple days and is radiating up to his sinus and behind his eyes. He states area around eyes feels swollen. He also has lymph nodes enlarged in neck. He denies any fever. He admits to nausea. He is not currently on any antibiotics. got CT due to states pressure behind eyes but no abscess seen only periapical disease. discussed with dr burden will try keflex instead and have referral for oral surgery. gave short course of nacrotics for pain. patient understand and agrees with plan. - Differential Diagnoses Differential Diagnoses: Dental Abscess, Dental Caries, Fractured Tooth - Diagnoses Provider Diagnoses: Dental infection Discharge - Discharge Plan Condition: Good Disposition: HOME Prescriptions: Cephalexin CAP* [Keflex CAP*] 500 mg PO TID #30 cap HYDROcodone/ACETAMIN 5-325 MG* [[place] 5-325 TAB*] 1 tab PO Q6H PRN #12 tab MDD 4 PRN Reason: Pain Patient Education Materials: Dental Abscess (ED) Referrals: Donnie Harrison MD [Doctor of Dental Medicine] - No Primary Care Phys,NOPCP [Primary Care Provider] - Baldemar Harper MD [Doctor of Dental Medicine] - Additional Instructions: Take antibiotics: three times a day for 10 days Use ibuprofen every 6 hours Avoid hard, crunchy food until seen by dentist Return to ED if develop any new or worsening symptoms Follow up with dentist as soon as possible Images - Images Dental: 1 - cracked tooth
--- NOTE | 2017-09-16 19:15 | RAD ---
INDICATION: Dental abscess right side of the face. COMPARISON: There are no prior studies available for comparison. TECHNIQUE: Contiguous axial sections of the axial images of the facial bones were obtained and reconstructed in the coronal and sagittal planes. The exam was performed following intravenous injection of 75 mL of Omnipaque 300 nonionic contrast. FINDINGS: There are scattered dental carious lesions present. There is periapical disease present involving multiple teeth in the maxilla on both sides. No soft tissue abscess is seen. The right maxillary sinus is atelectatic with near complete opacification. The paranasal sinuses otherwise appear clear. The mastoid air cells are clear. There is a mildly prominent submandibular lymph node present on the right side measuring 1.2 cm in transverse dimension likely reactive secondary to the patient's dental infection. IMPRESSION: DENTAL DISEASE DESCRIBED, NO SOFT TISSUE ABSCESS IS SEEN.
[2017-09-16] MEDS ORDERED: HYDROcodone/ACETAMIN 5-325 MG* 1 TAB PO ONE (19:52)
[2017-09-16 20:20] VITALS: BP 153/91
== END 2017-09-16 20:23 | disposition home or self-care (01) ==
LOC: ED 16:33
DX: K04.7 Periapical abscess without sinus (principal); K08.89 Other specified disorders of teeth and supporting structures; Z87.891 Personal history of nicotine dependence
CPT/HCPCS: 36415; 70487; 80053; 85025; 96374; 99283; A9270-GY; J1885; Q9967

== ENCOUNTER 2017-12-08 11:42 | Emergency (ER) | payer OTHER ==
[2017-12-08 12:38] VITALS: BP 123/82
--- NOTE | 2017-12-08 13:17 | RAD ---
HISTORY: Left elbow pain, subacute trauma COMPARISONS: None VIEWS: 4, Frontal, lateral, and oblique views of the left elbow FINDINGS: BONE DENSITY: Normal. BONES: There is no displaced fracture. JOINTS: There is no arthropathy. There is no posterior supracondylar fat pad to suggest a joint effusion. ALIGNMENT: There is no dislocation. SOFT TISSUES: Unremarkable. OTHER FINDINGS: None. IMPRESSION: NO ACUTE OSSEOUS INJURY. IF SYMPTOMS PERSIST, RECOMMEND REPEAT IMAGING.
--- NOTE | 2017-12-08 13:25 | UC ---
Elbow Pain - HPI Summary HPI Summary: For about a month gradually worsening pain in L elbow, worse with gripping and picking up heavy loads. has 6-month-old baby at home, notices pain with holding infant. Yesterday accidentally struck elbow on hard surface and pain worsened. - History of Current Complaint Chief Complaint: UCUpperExtremity Stated Complaint: ELBOW INJURY Time Seen by Provider: 12/08/17 13:05 Hx Obtained From: Patient Onset/Duration: Weeks, Atraumatic Severity Initially: Mild Severity Currently: Moderate Pain Intensity: 7 Location Of Pain: Is Discrete @ Character: Aching, Stiffness, Burning Aggravating Factor(s): Other - L medical device, L wrist movement Associated Signs And Symptoms: Positive: Negative - Allergies/Home Medications Allergies/Adverse Reactions: Allergies Allergy/AdvReac Type Severity Reaction Status Date / Time albuterol Allergy Unknown Verified 12/08/17 13:09 Reaction Details codeine Allergy Rash Verified 12/08/17 13:09 Penicillins Allergy Rash Verified 12/08/17 13:09 Home Medications: Home Medications Buprenorphine/Naloxone SL TAB* [Suboxone 8-2 mg SL TAB*] 1 tab PO BID 12/08/17 [ History Confirmed 12/08/17] PMH/Surg Hx/FS Hx/Imm Hx Other GI/ History: Hep C - Surgical History Surgical History: Yes Surgery Procedure, Year, and Place: FUSION 2001 L-3 TRAUMA - Family History Known Family History: Positive: Cardiac Disease Negative: Blood Disorder - Social History Alcohol Use: Rare Substance Use Type: Prescribed, Other - hx drug use Substance Use Comment - Amount & Last Used: Percocet 7.5 mg 4 times a day Smoking Status (MU): Former Smoker Type: Cigars Amount Used/How Often: once a week Have You Smoked in the Last Year: Yes Household Exposure Type: Cigarettes - Immunization History Most Recent Tetanus Shot: uNKNOWN Review of Systems Constitutional: Negative Skin: Negative Eyes: Negative ENT: Negative Respiratory: Negative Cardiovascular: Negative Gastrointestinal: Negative Genitourinary: Negative Motor: Negative Neurovascular: Negative Musculoskeletal: Arthralgia Neurological: Negative Psychological: Negative Is Patient Immunocompromised?: No All Other Systems Reviewed And Are Negative: Yes Physical Exam Triage Information Reviewed: Yes Appearance: Well-Appearing, No Pain Distress, Well-Nourished Vital Signs: Initial Vital Signs Temp 97.4 F 12/08/17 12:33 Pulse 85 03/05/18 12:33 Resp 18 12/08/17 12:33 BP 123/82 12/08/17 12:33 Pulse Ox 98 12/08/17 12:33 Vital Signs Reviewed: Yes Eye Exam: Normal Eyes: Positive: Conjunctiva Clear ENT Exam: Normal ENT: Positive: Normal ENT inspection, Hearing grossly normal, Pharynx normal, TMs normal Dental Exam: Normal Neck exam: Normal Neck: Positive: Supple, Nontender, No Lymphadenopathy Respiratory Exam: Normal Respiratory: Positive: Chest non-tender, Lungs clear, Normal breath sounds, No respiratory distress, No accessory muscle use Cardiovascular Exam: Normal Cardiovascular: Positive: RRR, No Murmur Musculoskeletal Exam: Other - focal pain/tenderness over L lateral epicondyle, no visible swelling. FROM, good medical device strength though pain is provoked by medical device. Musculoskeletal: Positive: ROM Intact Neurological Exam: Normal Neurological: Positive: Alert Psychological Exam: Normal Skin Exam: Normal Diagnostics - Radiology No standard instances Xray Interpretation: No Acute Changes Radiology Interpretation Completed By: Radiologist Elbow Pain Course/Dx - Differential Dx/Diagnosis Provider Diagnoses: L lateral epicondylitis. elevated blood pressure due to pain Discharge - Discharge Plan Condition: Stable Disposition: HOME Prescriptions: Cyclobenzaprine TAB* [Flexeril 10 MG TAB*] 10 mg PO TID PRN #30 tab PRN Reason: Pain Patient Education Materials: Tennis Elbow (ED) Forms: *Work Release Referrals: No Primary Care Phys,NOPCP [Primary Care Provider] - Hayden Nation MD [Medical Doctor] - 1 Week Additional Instructions: Wear the splint for all daytime activities (especially work and holding your baby!) and remove at night. Keep taking the naproxen 2 times per day. As we discussed, I do not think the flexeril is likely to be helpful, but you are welcome to try it for a few days. Because of how much pain you are having, I think you may benefit from orthopedic consultation, possibly with steroid injections.
== END 2017-12-08 13:38 | disposition home or self-care (01) ==
LOC: UCEAST 11:42
DX: M77.12 Lateral epicondylitis, left elbow (principal); R03.0 Elevated blood-pressure reading, without diagnosis of hypertension; B18.2 Chronic viral hepatitis C; Z88.5 Allergy status to narcotic agent; Z88.0 Allergy status to penicillin; Z88.8 Allergy status to other drugs, medicaments and biological substances; Z87.891 Personal history of nicotine dependence
CPT/HCPCS: 99213; G0463

== ENCOUNTER 2017-12-26 15:41 | Emergency (ER) | payer OTHER ==
[2017-12-26 15:58] VITALS: BP 139/89
[2017-12-26] MEDS ORDERED: Ondansetron ODT TAB* 4 MG PO ONE (16:15)
--- NOTE | 2017-12-26 21:33 | UC ---
Leonardo Wagner Nikita, scribed for Ricky Solis MD on 12/26/17 at 1616 . General HPI - HPI Summary HPI Summary: This patient is a 42 year old M presenting to [facility] with a chief complaint of N/V /D since 12/23/17. The CC is described as emesis x4 and stool x5 since this morning after eating Gerry food. His diarrhea has no blood or mucous. The patient rates the pain 0/10 in severity. Symptoms aggravated by nothing. Symptoms alleviated by spontaneous resolution (patient has been taking Zofran). Patient denies abdominal pain. The patient denies any recent traveling or abx use. - History of Current Complaint Chief Complaint: UCGI Stated Complaint: ABDOMINAL PAIN, VOMITING, AND DIARRHEA Time Seen by Provider: 12/26/17 16:03 Hx Obtained From: Patient Onset/Duration: Sudden Onset, Lasting Days, Still Present Current Severity: None Pain Intensity: 0 Aggravating: nothing Alleviating: spontaneous resolution (patient has been taking Zofran) Associated Signs & Symptoms: Positive: Other - Patient denies abdominal pain. - Allergy/Home Medications Allergies/Adverse Reactions: Allergies Allergy/AdvReac Type Severity Reaction Status Date / Time albuterol Allergy Unknown Verified 12/26/17 15:58 Reaction Details codeine Allergy Rash Verified 12/26/17 15:58 Penicillins Allergy Rash Verified 12/26/17 15:58 PMH/Surg Hx/FS Hx/Imm Hx Endocrine History: Other Other Endocrine History: No DM Cardiovascular History: Other Other Cardiovascular History: No HTN GI/ History: Other Other GI/ History: IBS - Surgical History Surgical History: Yes Surgery Procedure, Year, and Place: FUSION 2001 L-3 TRAUMA - Family History Known Family History: Positive: Cardiac Disease Negative: Blood Disorder - Social History Alcohol Use: Rare Substance Use Type: Prescribed Substance Use Comment - Amount & Last Used: Percocet 7.5 mg 4 times a day Smoking Status (MU): Former Smoker Type: Cigars Amount Used/How Often: once a week Have You Smoked in the Last Year: Yes Household Exposure Type: Cigarettes - Immunization History Most Recent Tetanus Shot: uNKNOWN Review of Systems Gastrointestinal: Vomiting, Diarrhea, Nausea, Other - No abdominal pain All Other Systems Reviewed And Are Negative: Yes Physical Exam - Summary Physical Exam Summary: VITAL SIGNS: Reviewed. GENERAL: ~Patient is a well-developed and nourished MALE who is lying comfortable in the stretcher. ~Patient is not in any acute respiratory distress. HEAD AND FACE: Normocephalic EYES: PERRLA, EOMI x 2. EARS: Hearing grossly intact. MOUTH: Oropharynx within normal limits. NECK: Supple, trachea is midline, no adenopathy, no JVD, no carotid bruit. CHEST: Symmetric, no tenderness at palpation LUNGS: Clear to auscultation bilaterally. No wheezing or crackles. CVS: Regular rate and rhythm, S1 and S2 present, no murmurs or gallops appreciated. ABDOMEN: Soft, non-tender. Bowel sounds are normal. No abdominal abnormal pulsations. No abdominal pain. EXTREMITIES: Full ROM in all major joints, no edema, no cyanosis or clubbing. NEURO: Alert and oriented x 3. No acute neurological deficits. Speech is normal and follows commands. SKIN: Dry and warm Triage Information Reviewed: Yes Vital Signs: Initial Vital Signs Temp 98.6 F 12/26/17 15:54 Pulse 101 12/26/17 15:54 Resp 12 12/26/17 15:54 BP 139/89 12/26/17 15:54 Pulse Ox 97 12/26/17 15:54 Course/Dx - Course Course Of Treatment: The patient was found to have increased BP in UC. The patient will follow up with PCP for better control of BP. I discussed all the findings and test results with the patient. Patient was instructed to return to the urgent care or go to ER immediately if any of the symptoms return or worsens. Plan of care was discussed with the patient, and patient understands and agrees. All questions were answered to patient satisfaction. There were no further complaints or concerns. - Differential Dx - Multi-Symptom Differential Diagnoses: Other - nausea, vomiting, diarrhea Provider Diagnoses: nausea, vomiting, diarrhea Discharge - Sign-Out/Discharge Documenting (check all that apply): Discharge - Discharge Plan Condition: Stable Disposition: HOME Prescriptions: Omeprazole CAP* [Prilosec CAP* 20 MG] 20 mg PO BID #20 cap. Ondansetron TAB* [Zofran 4 MG Tab*] 4 mg PO Q6H PRN #15 tab PRN Reason: Nausea Patient Education Materials: Acute Nausea and Vomiting (ED), Acute Diarrhea (ED ) Referrals: [facility] [place] [facility]ERR[facility] [Outside] No Primary Care Phys,NOPCP [Primary Care Provider] - Additional Instructions: FOLLOW UP WITH YOUR PRIMARY CARE PROVIDER WITHIN ONE WEEK FOR HIGH BLOOD PRESSURE NOTED TODAY. RETURN TO URGENT CARE OR THE ED FOR ANY WORSENING OR NEW SYMPTOMS. The documentation as recorded by the Leonardo baker Nikita accurately reflects the service I personally performed and the decisions made by me, Ricky Solis MD.
== END 2017-12-26 16:25 | disposition home or self-care (01) ==
LOC: UCEAST 15:41
DX: R11.2 Nausea with vomiting, unspecified (principal); R19.7 Diarrhea, unspecified; K58.9 Irritable bowel syndrome, unspecified; Z88.5 Allergy status to narcotic agent; Z88.0 Allergy status to penicillin; Z88.8 Allergy status to other drugs, medicaments and biological substances; Z87.891 Personal history of nicotine dependence
CPT/HCPCS: 99212; A9270-GY; G0463

== ENCOUNTER 2018-01-16 18:51 | Emergency (ER) | payer OTHER ==
[2018-01-16 19:04] VITALS: BP 126/91
[2018-01-16] MEDS ORDERED: Ketorolac INJ* 30 MG/ML 1 ML VIAL IM ONE (19:29)
--- NOTE | 2018-01-16 19:29 | UC ---
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 States he has history of spinal fusion in lower lumbar vertebrae and has to use a urinary catheter at times to drain his urine since his surgery. He has used the cath 4 times today. Denies fever. denies PMH of urolithiasis. - History of Current Complaint Chief Complaint: UCBackPain Stated Complaint: BACK PAIN Time Seen by Provider: 01/16/18 19:06 Hx Obtained From: Patient Onset/Duration: Sudden Onset, Lasting Days Timing: Constant Severity Initially: Moderate Severity Currently: Severe Pain Intensity: 8 Character: Stiffness Aggravating Factor(s): Movement, Lifting, Bending Alleviating Factor(s): Nothing Associated Signs And Symptoms: Positive: Abdominal Pain, Flank Pain - Risk Factors AAA Risk Factors: Negative TAD Risk Factors: Negative Cauda Equina Risk Factors: Negative Epidural Abscess Risk Factors: Negative - Allergies/Home Medications Allergies/Adverse Reactions: Allergies Allergy/AdvReac Type Severity Reaction Status Date / Time albuterol Allergy Unknown Verified 01/16/18 19:06 Reaction Details codeine Allergy Rash Verified 01/16/18 19:06 Penicillins Allergy Rash Verified 01/16/18 19:06 Home Medications: Home Medications Acetaminophen [Tylenol] 1,000 mg 01/16/18 [History] Ibuprofen [Motrin Ib] 200 mg PO 01/16/18 [History] PMH/Surg Hx/FS Hx/Imm Hx Previously Healthy: Yes - Surgical History Surgical History: Yes Surgery Procedure, Year, and Place: FUSION 2001 L-3 TRAUMA - Family History Known Family History: Positive: Cardiac Disease Negative: Blood Disorder - Social History Alcohol Use: Rare Substance Use Type: Prescribed Substance Use Comment - Amount & Last Used: Percocet 7.5 mg 4 times a day Smoking Status (MU): Current Some Day Smoker Type: Cigars Amount Used/How Often: once a week Have You Smoked in the Last Year: Yes Household Exposure Type: Cigarettes - Immunization History Most Recent Tetanus Shot: uNKNOWN Review of Systems Genitourinary: Frequency Neurovascular: Negative Musculoskeletal: Other: - right lower back pain All Other Systems Reviewed And Are Negative: Yes Physical Exam Triage Information Reviewed: Yes Appearance: Pain Distress, Obese Vital Signs: Initial Vital Signs Temp 96.4 F 01/16/18 18:58 Pulse 109 01/16/18 18:58 Resp 18 01/16/18 18:58 BP 126/91 01/16/18 18:58 Pulse Ox 97 01/16/18 18:58 Vital Signs Reviewed: Yes Eyes: Positive: Conjunctiva Clear Neck: Positive: Supple, Nontender, No Lymphadenopathy Respiratory: Positive: Chest non-tender, Lungs clear Cardiovascular: Positive: RRR, No Murmur, Pulses Normal, Brisk Capillary Refill Abdomen Description: Positive: Nontender, No Organomegaly, Soft, CVA Tenderness (R) Bowel Sounds: Positive: Present Male Genital Exam: Positive: Normal Genitalia, No Hernia Musculoskeletal Exam: Other - SLR positive on left leg Musculoskeletal: Positive: Strength Intact, ROM Intact, No Edema Neurological: Positive: Alert, Muscle Tone Normal Skin Exam: Normal Back Pain Course/Dx - Course Course Of Treatment: Patient states toradol has not alleviated his low back pain , as opposed to what it usually does. Patient states pain level is still 8/10 and he continues to be very uncomfortable and testicular pain is very intense. CT scan does not show evidence of an obstructing kidney stone. Instructed patient to go to ER to rule out testicular pathology and for further pain control - Differential Dx/Diagnosis Provider Diagnoses: LUmbago. Right testicular pain Discharge - Sign-Out/Discharge Documenting (check all that apply): Discharge - Discharge Plan Condition: Fair Disposition: HOME Patient Education Materials: Low Back Strain (ED), Testicle Pain (ED) Referrals: No Primary Care Phys,NOPCP [Primary Care Provider] - [facility] – [place] [facility] [Outside] Additional Instructions: Patient had CT abdomen and pelvis which was negative for obstructive urolithiasis, patient was given toradol and flexeril which did not alleviate the pain in right lumbar area and continues to feel increased pressure in right testicle. Instructed patient to go to ER for pain management and evaluation of right testicular pain, patient refuses ambulance and wants to go by cab. - Billing Disposition and Condition Condition: FAIR Disposition: HOME
[2018-01-16] MEDS ORDERED: Cyclobenzaprine TAB* 10 MG PO ONE (19:30)
--- NOTE | 2018-01-16 20:28 | RAD ---
INDICATION: RIGHT flank pain radiating to the RIGHT groin. COMPARISON: July 26, 2015 CT. TECHNIQUE: Multidetector CT images were obtained from the lung bases to the ischial tuberosities. Evaluation of the viscera is limited without IV contrast. Multiplanar reformation. REPORT: Unremarkable visualized inferior thorax. Negative for CT abnormality of the unenhanced liver, gallbladder, pancreas, spleen. Negative for CT abnormality of the upper GI, small bowel, appendix, or colon. Negative for ascites or free air. Small fat-containing umbilical hernia without inflammatory change. Unremarkable adrenal glands. 1 mm calyceal stone inferior pole RIGHT kidney. 1 mm calyceal stone upper pole LEFT kidney. Negative for hydronephrosis. Unremarkable nondilated ureters. Largely decompressed urinary bladder limiting assessment without suspicious finding. Symmetric seminal vesicles. Negative for lymphadenopathy. Normal diameter abdominal aorta and iliac arteries with mild calcific plaque. Physiologic distention of the IVC. Postsurgical change of L3-L4 laminectomy and posterior fusion. Subchondral sclerosis flanking the sacroiliac joints and suggestion of subtle small subchondral erosions without significant interval change consistent with sequela of sacroiliitis. No suspicious focal osseous lesions evident. IMPRESSION: 1. Normal appendix documented. No acute pathologic process of the alimentary tract evident. 2. Small nonobstructive calyceal renal stones. Negative for hydronephrosis.
== END 2018-01-16 21:15 | disposition home or self-care (01) ==
LOC: UCEAST 18:51
DX: M54.5 Low back pain (principal); N50.811 Right testicular pain; N20.0 Calculus of kidney; R35.0 Frequency of micturition; Z88.5 Allergy status to narcotic agent; Z88.0 Allergy status to penicillin; Z88.8 Allergy status to other drugs, medicaments and biological substances; Z72.0 Tobacco use
CPT/HCPCS: 74176; 81003; 99212; A9270-GY; G0463; J1885

== ENCOUNTER 2019-05-08 12:24 | Emergency (ER) | payer OTHER ==
[2019-05-08] MEDS ORDERED: NS 0.9% 1000 ML** 1,000 ML IV ONE ×2 (12:28→14:07)
[2019-05-08] MEDS ORDERED: Ondansetron INJ* 2 MG/ML VIAL IV ONE (12:28)
--- NOTE | 2019-05-08 12:37 | ED ---
Substance Abuse/Use - HPI Summary HPI Summary: LEVEL 5 CAVEAT: HPI Limited due to AMS. This patient is a 44 year old male presenting to [facility] with a chief complaint of drug overdose. The patient states he bought Valium, but it may have been something else or mixed with something else. He says he snorted something. He was cyanotic upon EMS arrival. EMS gave him 12 mg of Narcan [employer] and reports vomiting. He reports no pertinent medical history. 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 He states that he self caths at home, and this is not a new issue. - History Of Current Complaint Stated Complaint: OVERDOSE PER EMS Time Seen by Provider: 05/08/19 12:25 Hx Obtained From: Patient - Allergies/Home Medications Allergies/Adverse Reactions: Allergies Allergy/AdvReac Type Severity Reaction Status Date / Time albuterol Allergy Unknown Verified 01/16/18 19:06 Reaction Details codeine Allergy Rash Verified 01/16/18 19:06 Penicillins Allergy Rash Verified 01/16/18 19:06 PMH/Surg Hx/FS Hx/Imm Hx Endocrine/Hematology History: Denies: Hx Diabetes, Hx Thyroid Disease Cardiovascular History: Denies: Hx Hypertension Respiratory History: Denies: Hx Asthma, Hx Chronic Obstructive Pulmonary Disease (COPD) GI History: Denies: Hx Ulcer - Surgical History Surgery Procedure, Year, and Place: FUSION 2002 L-3 TRAUMA Infectious Disease History: Reports: Hx Hepatitis - C Denies: Hx Clostridium Difficile, Hx Human Immunodeficiency Virus (HIV), Hx of Known/Suspected MRSA, Hx Shingles, Hx Tuberculosis, Hx Known/Suspected VRE, Hx Known/Suspected VRSA, History Other Infectious Disease - Family History Known Family History: Positive: Cardiac Disease Negative: Blood Disorder - Social History Alcohol Use: Rare Substance Use Type: Reports: Prescribed Substance Use Comment - Amount & Last Used: Percocet 7.5 mg 4 times a day Smoking Status (MU): Current Some Day Smoker Type: Cigars Amount Used/How Often: once a week Have You Smoked in the Last Year: Yes - Additional Comments History Additional Comments: LEVEL 5 CAVEAT: PMH Limited due to AMS. Review of Systems - ROS Summary Review of Systems Summary: LEVEL 5 CAVEAT: ROS Limited due to AMS. Positive: Vomiting Neurological: Other - AMS due to drug overdose All Other Systems Reviewed And Are Negative: No Physical Exam - Summary Physical Exam Summary: Constitutional: NAD, intermittently dry heaving Skin: Warm, Dry HENT: Normocephalic; Atraumatic Eyes: Conjunctiva normal Neck: Musculoskeletal ROM normal neck. (-) JVD, (-) Stridor, (-) Nuchal rigidity Cardio: Rhythm regular, rate normal, Heart sounds normal; Intact distal pulses; Radial pulses are 2+ and symmetric. (-) Murmur Pulmonary/Chest wall: Effort normal. (-) Respiratory distress, (-) Wheezes, (-) Rales Abd: Soft, (-) tenderness, (-) Distension, (-) Guarding, (-) Rebound Musculoskeletal: (-) Edema Lymph: (-) Cervical adenopathy Neuro: intermittently somnolent, moves all extremities. Psych: deferred Triage Information Reviewed: Yes Vital Signs On Initial Exam: Temp Pulse Resp BP Pulse Ox 97.9 F 102 22 143/92 100 05/08/19 12:37 05/08/19 12:37 05/08/19 12:37 05/08/19 12:37 05/08/19 12:37 Vital Signs Reviewed: Yes Diagnostics - Laboratory Result Diagrams: 05/08/19 12:53 05/08/19 12:53 Lab Statement: Any lab studies that have been ordered have been reviewed, and results considered in the medical decision making process. - Radiology CXR Radiology Interpretation Completed By: Radiologist Summary of Radiographic Findings: No evidence for acute disease. ED Provider has reviewed this report. - EKG 1227 Cardiac Rate: Tachycardia - 101 BPM EKG Rhythm: Sinus Tachycardia Summary of EKG Findings: An EKG at 1227 reveals sinus tachycardia at 101 BPM, nml axis, nml intervals. No STEMI. No acute changes. Re-Evaluation - Re-Evaluation First Eval Re-Evaluation Time: 14:51 Change: Improved Comment: On reevaluation, patient is alert and oriented 3, family at bedside. States he may have taken cocaine, are her normal time, he is unsure. Patient advised that he required Narcan would have likely without it. Patient ambulated in the ED. Course/Dx - Course Course Of Treatment: 44-year-old male who presents with suspected opiate overdose. Patient is s/p 12 of Narcan. On arrival to ED, patient in no acute distress mild tachycardia and nausea. Check a CBC CMP EKG, urine drug screen. Will also place on end-tidal monitoring. If patient requires repeated doses of Narcan hell be admitted. Suspect AMS secondary to drug abuse, patient does not improve shortly, will consider further imaging and labs. - Diagnoses Provider Diagnoses: Opioid use disorder, Overdose Discharge - Sign-Out/Discharge Documenting (check all that apply): Patient Departure - Discharge Patient Received Moderate/Deep Sedation with Procedure: No - Discharge Plan Condition: Stable Disposition: HOME Patient Education Materials: Opioid Use Disorder (ED) Referrals: No Primary Care Phys,NOPCP [Primary Care Provider] - Additional Instructions: You were seen in the emergency department for overdose. The EMT''s gave you narcan, without them you likely would have . Please do not use drugs or drink or drive. If any studies were not completed at the time of discharge you will be called with the relevant results. Please follow up with your primary care doctor in next 2-3 days and return to emergency department for worsening or concerning symptoms. - Billing Disposition and Condition Condition: STABLE Disposition: Home - Attestation Statements Document Initiated by Brianibtaj: Yes Documenting Scribe: Hayden Miller Provider For Whom Susannah is Documenting (Include Credential): Alexandro Whitney MD Scribe Attestation: IHayden, scribed for Alexandro Whitney MD on 05/08/19 at 1503. Scribe Documentation Reviewed: Yes Provider Attestation: The documentation as recorded by the Hayden baker accurately reflects the service I personally performed and the decisions made by , Alexandro Whitney MD Status of Scribe Document: Viewed
[2019-05-08 13:00] LABS: ABS Eosinophils 0.1 10^3/ul (0-0.6); ABS Lymphocytes 1.2 10^3/ul (1.0-4.8); ABS Monocytes 0.5 10^3/ul (0-0.8); ABS Neutrophils 13.3 10^3/ul (1.5-7.7); Eosinophil % 0.5 %; Hematocrit 41 % (42-52); Hemoglobin 14.1 g/dL (14.0-18.0); Lymphocyte % 8.1 %; Mean Corpuscular HGB Conc 35 g/dL (31-36); Mean Corpuscular Hemoglobin 31 pg (27-31); Mean Corpuscular Volume 88 fL (80-94); Mean Platelet Volume 7.7 fL (7.4-10.4); Platelet Count 241 10^3/uL (150-450); Red Blood Count 4.64 10^6 /uL (4.18-5.48); Red Cell Distribution Width 13 % (10-15); White Blood Count 15.2 10^3/uL (3.5-10.8)
[2019-05-08 13:17] LABS: Albumin 4.4 g/dL (3.2-5.2); Albumin/Globulin Ratio 1.8 (1-3); BUN/Creatinine Ratio 17.5 (8-20); Calcium 9.1 mg/dL (8.6-10.3); EGFR African American 102.2 (>60); EGFR Non-African American 84.5 (>60); Globulin 2.4 g/dL (2-4); Total Bilirubin 0.3 mg/dL (0.2-1.0); Total Protein 6.8 g/dL (6.4-8.9)
[2019-05-08 13:18] LABS: Troponin I 0.03 ng/mL (<0.04)
[2019-05-08] MEDS ORDERED: Acetaminophen TAB* 325 MG PO ONE (14:51)
[2019-05-08 15:22] VITALS: BP 117/75
== END 2019-05-08 15:19 | disposition home or self-care (01) ==
LOC: ED 12:24
DX: T42.4X1A Poisoning by benzodiazepines, accidental (unintentional), initial encounter (principal); F11.10 Opioid abuse, uncomplicated; F17.290 Nicotine dependence, other tobacco product, uncomplicated; Z88.5 Allergy status to narcotic agent; Z88.0 Allergy status to penicillin; Z88.8 Allergy status to other drugs, medicaments and biological substances
CPT/HCPCS: 36415; 71045; 80053; 84484; 85025; 93005; 96361; 96374; 99283; A9270-GY; J2405

== ENCOUNTER 2022-08-31 19:39 | Inpatient (IN) ==
[2022-08-31 21:05] LABS: ABS Basophils 0.1 10^3/ul (0-0.2); ABS Lymphocytes 2.7 10^3/ul (1.0-4.8); ABS Monocytes 0.8 10^3/ul (0-0.8); Eosinophil % 0.3 %; Hematocrit 52 % (42-52); Hemoglobin 17.5 g/dL (14.0-18.0); Lymphocyte % 21.3 %; Mean Corpuscular HGB Conc 34 g/dL (31-36); Mean Corpuscular Hemoglobin 30 pg (27-31); Mean Corpuscular Volume 88 fL (80-94); Mean Platelet Volume 7.7 fL (7.4-10.4); Nucleated Red Blood Cells % 0.2; Platelet Count 366 10^3/uL (150-450); Red Blood Count 5.83 10^6 /uL (4.18-5.48); Red Cell Distribution Width 13 % (10-15); White Blood Count 12.7 10^3/uL (3.5-10.8)
[2022-08-31 21:36] LABS: ALT 30 U/L (7-52); AST 24 U/L (13-39); Acetaminophen < 15 mcg/mL; Albumin 4.9 g/dL (3.2-5.2); Albumin/Globulin Ratio 1.8 (1-3); Alcohol, S < 13 mg/dL (<13); Alkaline Phosphatase 95 U/L (35-149); Anion Gap 10 mmol/L (2-11); Blood Urea Nitrogen 18 mg/dL (6-24); CO2 Carbon Dioxide 25 mmol/L (22-32); Chloride 102 mmol/L (101-111); Globulin 2.7 g/dL (2-4); Glucose 103 mg/dL (70-100); Potassium 4.8 mmol/L (3.5-5.0); Salicylate < 2.50 mg/dL (<30); Sodium 137 mmol/L (135-145); Total Protein 7.6 g/dL (6.4-8.9); eGFR CKD-EPI 91.8 (>60)
[2022-08-31 21:49] LABS: TSH Ultra Thyroid Stim Horm 0.71 mcIU/mL (0.34-5.60)
[2022-09-01 01:08] LABS: Urine Appearance Cloudy; Urine Bilirubin Negative (Negative); Urine Blood Negative (Negative); Urine Color Yellow; Urine Glucose Negative (Negative); Urine Ketones Negative (Negative); Urine Nitrite Negative (Negative); Urine Protein 1+(30 mg/dL) (Negative); Urine Specific Gravity 1.025 (1.002-1.030); Urine Urobilinogen Negative (Negative)
[2022-09-01 01:19] LABS: Urine Bacteria Absent (Absent); Urine Red Blood Cell 3+(>10/hpf) (Absent); Urine White Blood Cell Trace(0-5/hpf) (Absent)
[2022-09-01 01:28] LABS: Urine Benzodiazepine Screen Presumptive Positive (None Detect); Urine Buprenorphine Screen None Detected (None Detect); Urine Cannabinoids Screen None Detected (None Detect); Urine Fentanyl Screen None Detected (None Detect); Urine Hydrocodone Screen None Detected (None Detect); Urine Opiates Screen None Detected (None Detect)
[2022-09-01] MEDS: OLANZapine 10 mg TAB*ODT PO SCH ×2 (01:35→19:58)
[2022-09-01] MEDS ORDERED: Al Hydrox/Mg Hydrox/Simet LIQ 30 ML UDC PO PRN (11:02)
[2022-09-02] MEDS: Vitamin THERAPEUTIC TAB PO SCH (08:58)
[2022-09-03] MEDS: Vitamin THERAPEUTIC TAB PO SCH (08:04)
[2022-09-03 09:04] VITALS: BP 122/75
[2022-09-03 09:07] LABS: HDL Cholesterol 32.3 mg/dL
== END 2022-09-03 14:07 | disposition home or self-care (01) | DRG 773 ==
LOC: ED 19:39 → EDHOLD 09-01 11:02 → BSU 09-01 12:45
PROVIDERS: ADMIT Student in an Organized Health Care Education/Training Program; ATTEND Student in an Organized Health Care Education/Training Program